=== PATIENT | female | born 1965 | race Caucasian/White ===

== ENCOUNTER 2016-11-27 19:06 | Inpatient (IN) | payer OTHER ==
[~2016-11-27] VITALS: Ht 162.6 cm; Wt 85.2 kg
[~2016-11-27 19:06] MED LIST: ATIVAN0.5 MG PO; CARBAMAZEPINE200 MG PO; CELEXA; CELEXA40 MG; CITALOPRAM HBR20 MG PO; CLONAZEPAM1 MG PO; DESYREL100 MG PO; FLONASE16 G1 BOTH NARES; HYDROXYZINE PAM25 MG PO; KLONOPIN1 MG PO; LISINOPRIL; LISINOPRIL10 MG PO; LITHIUM CARBON450 MG PO; PREMARIN VAGI42.5 GM TP; PRINIVIL10 MG PO; RISPERDAL1 MG PO; TEGRETOL200 MG PO; TRAZODONE HCL100 MG PO; ZOLOFT100 MG PO; ZOLPIDEM TARTRAT5 MG PO
[2016-11-27 20:12] LABS: EOSINOPHIL (%) 5.4 % (0-5); EOSINOPHIL COUNT 0.3 K/uL (0-0.3); HEMATOCRIT 38.9 % (36.0-46.0); IMMATURE GRANULOCYTE (%) 0.2 % (0.0-0.7); INSTRUMENT ABS NEUTROPHIL CT 2.2 K/uL; LYMPHOCYTE COUNT 2.4 K/uL (1.0-2.8); MCH 30.7 PG (29.0-34.0); MCHC 34.2 G/DL (30.0-36.0); MCV 89.8 FL (83-99); MEAN PLAT.VOLUME 9.4 uM^3 (9.5-12.4); MONOCYTE (%) 7.8 % (3-12); MONOCYTE COUNT 0.4 K/uL (0-0.8); NEUTROPHIL (%) 41.3 % (45-76); NEUTROPHIL COUNT 2.2 K/uL (1.8-6.4); PLATELET COUNT 370 K/uL (156-360); RBC DIS.WIDTH-CV 12.8 % (11.8-14.6); RBC DIS.WIDTH-SD 42.4 % (39-53); RED BLOOD COUNT 4.33 M/uL (3.80-5.20); WHITE BLOOD COUNT 5.4 K/uL (4.1-10.2)
[2016-11-27] MEDS ORDERED: ALPRAZOLAM0.5 MG PO (20:26)
[2016-11-27] MEDS ORDERED: DESYREL100 MG PO (20:26)
[2016-11-27] MEDS ORDERED: SUMATRIPTAN SU100 MG PO (20:28)
[2016-11-27] MEDS ORDERED: CYCLOBENZAPRINE10 MG PO (20:28)
[2016-11-27] MEDS ORDERED: SEROQUEL100 MG PO (20:29)
[2016-11-27] MEDS ORDERED: LAMICTAL25 MG PO (20:29)
[2016-11-27] MEDS ORDERED: ULTRAM50 MG PO (20:30)
[2016-11-27] MEDS ORDERED: FISH OIL 1,0001 EAC7 PO (20:31)
[2016-11-27] MEDS ORDERED: MULTIVITAMIN1 EAC2 PO (20:31)
[2016-11-27 20:33] LABS: QUANTITATIVE HCG 4.5 MIU/ML
[2016-11-27] MEDS ORDERED: YUVAFEM10 MCG VG (20:34)
[2016-11-27 20:41] LABS: CHLORIDE 105 mEq/L (99-109); POTASSIUM 3.8 mEq/L (3.7-5.4); SODIUM 138 mEq/L (136-147)
[2016-11-27 20:43] LABS: ADD MIUA? YES; BILIRUBIN NEGATIVE; BLOOD NEGATIVE; COLOR YELLOW ((YELLOW)); GLUCOSE (STRIP) NEGATIVE; KETONES NEGATIVE; LEUKOCYTES NEGATIVE; NITRITE NEGATIVE; PROTEIN (STRIP) NEGATIVE; SPECIFIC GRAVITY 1.016 (1.000-1.030); UROBILINOGEN 0.2 MG/DL (0.2-1.0)
[2016-11-27 20:43] LABS: GLUCOSE 89 mg/dL (70-99)
[2016-11-27 20:44] LABS: ANION GAP 7 MEQ/L (2-14)
[2016-11-27 20:45] LABS: TOTAL BILIRUBIN 0.2 mg/dL (0.0-1.0)
[2016-11-27 20:46] LABS: SERUM ETHYL ALCOHOL < 10 mg/dL
[2016-11-27 20:47] LABS: ALKALINE PHOSPHATASE 92 IU/L (3-129); GFR ESTIMATE (CALCULATED) > 59 mL/min/
[2016-11-27 20:48] LABS: UREA NITROGEN (BUN) 14 mg/dL (9-23)
[2016-11-27 20:53] LABS: AMPHETAMINE NEGATIVE (500 ng/mL); BARBITURATES NEGATIVE (200 ng/mL); BENZODIAZEPINES PRESUMPTIVE POSITIVE (150 ng/mL); COCAINE NEGATIVE (150 ng/mL); INTERNAL CONTROLS VALID? YES; METHADONE NEGATIVE (200 ng/mL); METHAMPHETAMINE NEGATIVE (500 ng/mL); OPIATES (MORPHINE) NEGATIVE (100 ng/mL); OXYCODONE NEGATIVE (100 ng/mL); PHENCYCLIDINE NEGATIVE (25 ng/mL); PROPOXYPHENE NEGATIVE (300 ng/mL); THC CANNABINOIDS NEGATIVE (50 ng/mL); TRICYCLIC ANTIDEPRESSANTS NEGATIVE (300 ng/mL)
[2016-11-27 20:54] LABS: ADD MEDTOX COMMENT Y
[2016-11-27 20:58] LABS: AMORPHOUS URATES CRYSTALS 3+; BACTERIA 1+ /HPF; EPITHELIAL CELLS RARE /HPF; MUCUS RARE /LPF; RED BLOOD CELLS 0-5 /HPF (0-5); UCUL ADDED? NO; WHITE BLOOD CELLS 0-5 /HPF (0-5)
[2016-11-27 21:39] LABS: BENZODIAZEPINES, URINE SCREEN POSITIVE (200 ng/mL)
[2016-11-28 00:15] VITALS: BP 158/66
[2016-11-28 07:52] VITALS: BP 149/92
[2016-11-28 09:58] VITALS: BP 179/83
[2016-11-28 11:54] VITALS: BP 162/95
[2016-11-28 15:54] VITALS: BP 173/79
[2016-11-28 19:23] VITALS: BP 136/70
[2016-11-29 08:02] VITALS: BP 157/83
[2016-11-29 11:52] VITALS: BP 146/73
[2016-11-29 15:36] VITALS: BP 137/84
[2016-11-30 07:46] VITALS: BP 137/69
[2016-11-30] MEDS ORDERED: LAMOTRIGINE100 MG PO (11:05)
[2016-11-30] MEDS ORDERED: ALPRAZOLAM0.25 M2 PO (11:05)
[2016-11-30] MEDS ORDERED: QUETIAPINE FUMA50 MG PO (11:05)
[2016-11-30 15:40] VITALS: BP 142/73
== END 2016-11-30 16:38 | disposition home or self-care (01) | DRG 885 ==
LOC: EME 19:06 → 1WEST 20:20 → EDOF 20:20 → 1WEST 23:53
PROVIDERS: Emergency Medicine
DX: F31.9 Bipolar disorder, unspecified (principal); R45.851 Suicidal ideations; Z91.5 Personal history of self-harm; F41.9 Anxiety disorder, unspecified
CPT/HCPCS: 80053; 81003; 84702; 84999; 85025; 90839; 97150 GO; 97165 GO; 99281; 99285; G0480

== ENCOUNTER 2017-04-25 20:45 | Inpatient (IN) | payer OTHER ==
[~2017-04-25] VITALS: Ht 162.6 cm; Wt 87.6 kg
[~2017-04-25 20:45] MED LIST changes: +ALPRAZOLAM0.25 M2 PO; +ALPRAZOLAM0.5 MG PO; +CYCLOBENZAPRINE10 MG PO; +FISH OIL 1,0001 EAC7 PO; +LAMICTAL25 MG PO; +LAMOTRIGINE100 MG PO; +MULTIVITAMIN1 EAC2 PO; +QUETIAPINE FUMA50 MG PO; +SEROQUEL100 MG PO; +SUMATRIPTAN SU100 MG PO; +ULTRAM50 MG PO; +YUVAFEM10 MCG VG
[2017-04-25 22:07] LABS: BASOPHIL COUNT 0.1 K/uL (0-0.1); EOSINOPHIL (%) 5.1 % (0-5); EOSINOPHIL COUNT 0.2 K/uL (0-0.3); HEMATOCRIT 38.5 % (36.0-46.0); IMMATURE GRANULOCYTE (%) 0.2 % (0.0-0.7); INSTRUMENT ABS NEUTROPHIL CT 1.9 K/uL; LYMPHOCYTE COUNT 1.9 K/uL (1.0-2.8); MCH 30.5 PG (29.0-34.0); MCHC 34.3 G/DL (30.0-36.0); MCV 88.9 FL (83-99); MEAN PLAT.VOLUME 9.2 uM^3 (9.5-12.4); MONOCYTE (%) 6.5 % (3-12); MONOCYTE COUNT 0.3 K/uL (0-0.8); NEUTROPHIL (%) 42.9 % (45-76); NEUTROPHIL COUNT 1.9 K/uL (1.8-6.4); PLATELET COUNT 328 K/uL (156-360); RBC DIS.WIDTH-CV 12.8 % (11.8-14.6); RBC DIS.WIDTH-SD 42.2 % (39-53); RED BLOOD COUNT 4.33 M/uL (3.80-5.20); WHITE BLOOD COUNT 4.3 K/uL (4.1-10.2)
[2017-04-25 22:17] LABS: CHLORIDE 109 mEq/L (99-109); POTASSIUM 3.8 mEq/L (3.7-5.4); SODIUM 140 mEq/L (136-147)
[2017-04-25 22:19] LABS: GLUCOSE 75 mg/dL (70-99)
[2017-04-25 22:20] LABS: ANION GAP 9 MEQ/L (2-14)
[2017-04-25 22:21] LABS: TOTAL BILIRUBIN 0.3 mg/dL (0.0-1.0)
[2017-04-25 22:22] LABS: SERUM ETHYL ALCOHOL 51 mg/dL
[2017-04-25 22:23] LABS: ALKALINE PHOSPHATASE 93 IU/L (3-129); GFR ESTIMATE (CALCULATED) > 59 mL/min/
[2017-04-25 22:24] LABS: DIRECT BILIRUBIN 0.1 mg/dL (0.0-0.3)
[2017-04-25 22:25] LABS: UREA NITROGEN (BUN) 16 mg/dL (9-23)
[2017-04-25 22:26] LABS: SALICYLATE < 5.0 MG/DL (15-30)
[2017-04-25 22:27] LABS: TROP-I INTERPRETATION NEGATIVE; TROPONIN-I < 0.01 ng/mL (0.0-0.30)
[2017-04-25 22:29] LABS: ADD MEDTOX COMMENT Y; AMPHETAMINE PRESUMPTIVE POSITIVE (500 ng/mL); BARBITURATES NEGATIVE (200 ng/mL); BENZODIAZEPINES PRESUMPTIVE POSITIVE (150 ng/mL); COCAINE NEGATIVE (150 ng/mL); INTERNAL CONTROLS VALID? YES; METHADONE NEGATIVE (200 ng/mL); METHAMPHETAMINE NEGATIVE (500 ng/mL); OPIATES (MORPHINE) NEGATIVE (100 ng/mL); OXYCODONE NEGATIVE (100 ng/mL); PHENCYCLIDINE NEGATIVE (25 ng/mL); PROPOXYPHENE NEGATIVE (300 ng/mL); THC CANNABINOIDS NEGATIVE (50 ng/mL); TRICYCLIC ANTIDEPRESSANTS NEGATIVE (300 ng/mL)
[2017-04-25 22:55] LABS: AMPHETAMINES QUANT VALUE 0 NG/ML; BENZODIAZEPINES, URINE SCREEN POSITIVE (200 ng/mL)
[2017-04-26] MEDS ORDERED: MELATONIN3 MG PO (00:11)
[2017-04-26] MEDS ORDERED: SEROQUEL50 MG PO (00:12)
[2017-04-26 00:50] VITALS: BP 128/63
[2017-04-26 08:53] VITALS: BP 157/86
[2017-04-26 16:32] VITALS: BP 153/75
[2017-04-26 19:20] VITALS: BP 143/80
[2017-04-27 07:59] VITALS: BP 126/87
[2017-04-27 15:42] VITALS: BP 133/71
[2017-04-28 07:19] VITALS: BP 119/58
[2017-04-28] MEDS ORDERED: QUETIAPINE FUM100 MG PO (09:37)
[2017-04-28] MEDS ORDERED: ZOLOFT100 MG PO (09:37)
== END 2017-04-28 12:30 | disposition home or self-care (01) | DRG 885 ==
LOC: EME 20:45 → 1WEST 22:56 → EDOF 22:56 → 1WEST 22:56 → ENRESERV 04-26 00:26 → 1WEST 04-28 12:30
PROVIDERS: Emergency Medicine
DX: F33.1 Major depressive disorder, recurrent, moderate (principal); R45.851 Suicidal ideations; I10 Essential (primary) hypertension; Z63.0 Problems in relationship with spouse or partner; Z87.891 Personal history of nicotine dependence; Z91.5 Personal history of self-harm; Z81.8 Family history of other mental and behavioral disorders
CPT/HCPCS: 80048; 80076; 84484; 84999; 85025; 90839; 93005; 99281; 99285; G0480

== ENCOUNTER 2017-07-25 10:44 | Emergency (ER) | payer BC ==
[~2017-07-25] VITALS: Ht 162.6 cm; Wt 88.2 kg
[~2017-07-25 10:44] MED LIST changes: +MELATONIN3 MG PO; +QUETIAPINE FUM100 MG PO; +SEROQUEL50 MG PO
[2017-07-25 12:07] LABS: APPEARANCE CLEAR ((CLEAR)); BILIRUBIN NEGATIVE; BLOOD NEGATIVE; COLOR YELLOW ((YELLOW)); GLUCOSE (STRIP) NEGATIVE; KETONES 5; LEUKOCYTES NEGATIVE; NITRITE NEGATIVE; PROTEIN (STRIP) NEGATIVE; SPECIFIC GRAVITY 1.023 (1.000-1.030); UCUL ADDED? NO; UROBILINOGEN 0.2 MG/DL (0.2-1.0)
[2017-07-25 12:21] LABS: AMPHETAMINE NEGATIVE (500 ng/mL); BARBITURATES NEGATIVE (200 ng/mL); BENZODIAZEPINES PRESUMPTIVE POSITIVE (150 ng/mL); BUPRENORPHINE NEGATIVE (10 ng/mL); COCAINE NEGATIVE (150 ng/mL); METHADONE NEGATIVE (200 ng/mL); METHAMPHETAMINE NEGATIVE (500 ng/mL); OPIATES (MORPHINE) NEGATIVE (100 ng/mL); OXYCODONE NEGATIVE (100 ng/mL); PHENCYCLIDINE NEGATIVE (25 ng/mL); PROPOXYPHENE NEGATIVE (300 ng/mL); THC CANNABINOIDS NEGATIVE (50 ng/mL); TRICYCLIC ANTIDEPRESSANTS NEGATIVE (300 ng/mL)
[2017-07-25 12:21] LABS: BASOPHIL (%) 0.9 % (0-1); EOSINOPHIL (%) 4.5 % (0-5); EOSINOPHIL COUNT 0.2 K/uL (0-0.3); HEMATOCRIT 39.5 % (36.0-46.0); HEMOGLOBIN 13.7 G/DL (11.9-15.5); IMMATURE GRANULOCYTE (%) 0.2 % (0.0-0.7); LYMPHOCYTE (%) 37.6 % (15-42); LYMPHOCYTE COUNT 1.6 K/uL (1.0-2.8); MCH 31.5 PG (29.0-34.0); MCHC 34.7 G/DL (30.0-36.0); MCV 90.8 FL (83-99); MONOCYTE (%) 9.2 % (3-12); MONOCYTE COUNT 0.4 K/uL (0-0.8); NEUTROPHIL (%) 47.6 % (45-76); PLATELET COUNT 314 K/uL (156-360); RBC DIS.WIDTH-CV 12.9 % (11.8-14.6); RBC DIS.WIDTH-SD 42.5 % (39-53); RED BLOOD COUNT 4.35 M/uL (3.80-5.20); WHITE BLOOD COUNT 4.3 K/uL (4.1-10.2)
[2017-07-25 12:33] LABS: ALBUMIN 4.1 g/dL (3.2-4.8); CHLORIDE 105 mEq/L (99-109); POTASSIUM 4.1 mEq/L (3.7-5.4); SODIUM 137 mEq/L (136-147)
[2017-07-25 12:35] LABS: GLUCOSE 100 mg/dL (70-99); TOTAL PROTEIN 7.6 g/dL (6.4-8.3)
[2017-07-25 12:37] LABS: TOTAL BILIRUBIN 0.4 mg/dL (0.0-1.0)
[2017-07-25 12:38] LABS: SERUM ETHYL ALCOHOL < 10 mg/dL
[2017-07-25 12:39] LABS: ALKALINE PHOSPHATASE 107 IU/L (3-129); CREATININE 0.9 mg/dL (0.6-1.3); GFR ESTIMATE (CALCULATED) > 59 mL/min/
[2017-07-25 12:40] LABS: AST (GOT) 18 IU/L (2-34)
[2017-07-25 12:41] LABS: UREA NITROGEN (BUN) 16 mg/dL (9-23)
[2017-07-25 12:42] LABS: SALICYLATE < 5.0 MG/DL (15-30)
[2017-07-25 12:43] LABS: ACETAMINOPHEN (TYLENOL) < 10 mcg/mL (10-30); ALT (GPT) 15 IU/L (3-49)
[2017-07-25 12:51] LABS: QUANTITATIVE HCG < 4.0 MIU/ML
[2017-07-25 13:07] LABS: BENZODIAZEPINES, URINE SCREEN POSITIVE (200 ng/mL)
[2017-07-25 18:07] VITALS: BP 135/92
== END 2017-07-25 18:08 ==
LOC: EME 10:44
PROVIDERS: Emergency Medicine
DX: F31.13 Bipolar disorder, current episode manic without psychotic features, severe (principal); I10 Essential (primary) hypertension; Z87.891 Personal history of nicotine dependence; Z88.8 Allergy status to other drugs, medicaments and biological substances
CPT/HCPCS: 80053; 81003; 84702; 84999; 85025; 90837; 99281; 99284; G0480

== ENCOUNTER 2018-01-18 18:25 | Inpatient (IN) | payer BC ==
[~2018-01-18] VITALS: Ht 162.6 cm; Wt 82.0 kg
[2018-01-18 19:20] LABS: AMPHETAMINE PRESUMPTIVE POSITIVE (500 ng/mL); BENZODIAZEPINES PRESUMPTIVE POSITIVE (150 ng/mL); COCAINE NEGATIVE (150 ng/mL); METHAMPHETAMINE NEGATIVE (500 ng/mL); OPIATES (MORPHINE) NEGATIVE (100 ng/mL); PHENCYCLIDINE NEGATIVE (25 ng/mL); THC CANNABINOIDS NEGATIVE (50 ng/mL)
[2018-01-18 19:21] LABS: BARBITURATES NEGATIVE (200 ng/mL); BUPRENORPHINE NEGATIVE (10 ng/mL); METHADONE NEGATIVE (200 ng/mL); OXYCODONE NEGATIVE (100 ng/mL); PROPOXYPHENE NEGATIVE (300 ng/mL); TRICYCLIC ANTIDEPRESSANTS NEGATIVE (300 ng/mL)
[2018-01-18 19:22] LABS: HEMATOCRIT 36.9 % (36.0-46.0); MCH 31.5 PG (29.0-34.0); MCHC 35.2 G/DL (30.0-36.0); MCV 89.3 FL (83-99); PLATELET COUNT 357 K/uL (156-360); RBC DIS.WIDTH-CV 12.4 % (11.8-14.6); RBC DIS.WIDTH-SD 40.5 % (39-53); RED BLOOD COUNT 4.13 M/uL (3.80-5.20)
[2018-01-18 19:35] LABS: CHLORIDE 104 mEq/L (99-109); SODIUM 138 mEq/L (136-147)
[2018-01-18 19:37] LABS: GLUCOSE 89 mg/dL (70-99)
[2018-01-18 19:40] LABS: SERUM ETHYL ALCOHOL < 10 mg/dL
[2018-01-18 19:41] LABS: GFR ESTIMATE (CALCULATED) > 59 mL/min/
[2018-01-18 19:42] LABS: UREA NITROGEN (BUN) 15 mg/dL (9-23)
[2018-01-18 20:09] LABS: BENZODIAZEPINES, URINE SCREEN Negative (200 ng/mL)
[2018-01-18] MEDS ORDERED: CATAPRES0.1 MG PO (22:27)
[2018-01-18] MEDS ORDERED: ALPRAZOLAM1 MG PO (22:28)
[2018-01-18] MEDS ORDERED: NASACORT10.8 ML BOTH NARES (22:30)
[2018-01-18] MEDS ORDERED: PHENTERMINE HCL15 MG PO (22:32)
[2018-01-18 23:21] VITALS: BP 136/83
[2018-01-19 08:01] VITALS: BP 136/72
[2018-01-19 17:01] VITALS: BP 115/55
[2018-01-20 08:34] VITALS: BP 118/60
[2018-01-20 16:41] VITALS: BP 132/72
[2018-01-21 08:01] VITALS: BP 114/58
[2018-01-21] MEDS ORDERED: DESYREL100 MG PO (08:45)
[2018-01-21] MEDS ORDERED: LAMOTRIGINE150 MG PO (08:45)
[2018-01-21] MEDS ORDERED: RISPERIDONE1 MG PO (08:45)
[2018-01-21] MEDS ORDERED: ZOLOFT100 MG PO (08:45)
== END 2018-01-21 14:17 | disposition home or self-care (01) | DRG 885 ==
LOC: EME 18:25 → EDOF 20:55 → 1WEST 20:55 → ENRESERV 21:55 → 1WEST 23:21
DX: F33.3 Major depressive disorder, recurrent, severe with psychotic symptoms (principal); R45.851 Suicidal ideations; F23 Brief psychotic disorder; F60.3 Borderline personality disorder; F41.9 Anxiety disorder, unspecified; I10 Essential (primary) hypertension; G89.29 Other chronic pain; F63.9 Impulse disorder, unspecified; F42.8 Other obsessive-compulsive disorder; Z87.891 Personal history of nicotine dependence; Z79.51 Long term (current) use of inhaled steroids; Z56.0 Unemployment, unspecified; Z81.1 Family history of alcohol abuse and dependence; Z81.8 Family history of other mental and behavioral disorders
CPT/HCPCS: 80048; 84999; 85027; 90839; 97150 GO; 97165 GO; 99281; 99285; G0480; Q0177